=== PATIENT | female | born 1975 | race Caucasian/White ===

== ENCOUNTER 2016-03-22 15:28 | Emergency (ER) | payer OTHER ==
[~2016-03-22] VITALS: Ht 177.8 cm; Wt 111.0 kg
[~2016-03-22 15:28] MED LIST: ACID CONTROL150 MG PO; BACTRIM,SEPT1 TABLET PO; CIPRO500 MG PO; CLARITIN10 M4 PO; CLONAZEPAM0.5 MG PO; COUMADIN2.5 MG PO; COUMADIN5 MG PO; CYCLOBENZAPRINE10 MG PO; CYCLOBENZAPRINE5 MG PO; CYMBALTA60 MG PO; DEPO-PROVER150 MG/ML IM; DOXYCYCLINE HY100 MG PO; DULOXETINE HCL60 MG PO; FLEXERIL5 MG PO; GABAPENTIN300 MG PO; KLONOPIN0.5 M1 PO; LEVOTHYROXINE100 MCG PO; LEVOTHYROXINE175 MCG PO; LOVENOX100 MG/1 M SC; MORPHINE SULFAT15 M1 PO; NEURONTIN300 MG PO; OXYCODONE-APAP1 EAC6 PO; PERCOCET 5/31 TABLET PO; PERCOCET 7.51 TABLET PO; RANITIDINE HCL150 MG PO; REGLAN10 MG PO; SALINE NASAL SP45 ML BOTH NARES; SYNTHROID200 MCG PO; TOPAMAX50 MG PO; TOPIRAMATE50 MG PO; TRAZODONE HCL50 MG PO; TYLENOL EXTRA500 MG PO; VALIUM5 MG PO; WARFARIN SODIUM5 MG PO; WELLBUTRIN SR200 MG PO; ZOFRAN ODT4 MG PO; ZOLOFT100 MG PO
[2016-03-22 17:05] LABS: HEMATOCRIT 42.7 % (36.0-46.0); MCH 29.6 PG (29.0-34.0); MCHC 32.6 G/DL (30.0-36.0); MCV 90.9 FL (83-99); MEAN PLAT.VOLUME 9.8 uM^3 (9.5-12.4); PLATELET COUNT 288 K/uL (156-360); RBC DIS.WIDTH-CV 13.9 % (11.8-14.6); RBC DIS.WIDTH-SD 45.2 % (39-53); WHITE BLOOD COUNT 10.6 K/uL (4.1-10.2)
[2016-03-22 17:16] LABS: CHLORIDE 108 mEq/L (99-109); POTASSIUM 4.1 mEq/L (3.7-5.4); SODIUM 140 mEq/L (136-147)
[2016-03-22 17:18] LABS: GLUCOSE 90 mg/dL (70-99)
[2016-03-22 17:19] LABS: ANION GAP 6 MEQ/L (2-14)
[2016-03-22 17:21] LABS: GFR ESTIMATE (CALCULATED) > 59 mL/min/
[2016-03-22 17:23] LABS: UREA NITROGEN (BUN) 6 mg/dL (9-23)
[2016-03-22 18:01] LABS: PROTHROMBIN TIME 51.1 (9.2-11.2)
[2016-03-22 18:09] LABS: INTER. NORMALIZED RATIO 4.8
[2016-03-22] MEDS ORDERED: COUMADIN2.5 MG PO (18:20)
[2016-03-22 18:59] VITALS: BP 122/85
== END 2016-03-22 19:00 | disposition home or self-care (01) ==
LOC: EME 15:28
DX: H11.32 Conjunctival hemorrhage, left eye (principal); R79.1 Abnormal coagulation profile; Z79.01 Long term (current) use of anticoagulants; Z86.718 Personal history of other venous thrombosis and embolism; Z86.711 Personal history of pulmonary embolism
CPT/HCPCS: 80048; 85027; 85610; 86850; 86900; 86901; 99281; 99284

== ENCOUNTER → 2016-08-16 | Outpatient (CLI) | payer OTHER ==
[2016-08-16 17:20] LABS: RED CELL AREA COUNTED 18; RED CELL COUNT 2 /MM^3 (0-1); RED CELL DILUTION 1; WBC AREA COUNTED 18; WBC DILUTION 1; WHITE CELL COUNT 1 /MM^3 (0-5); WHITE CELL RAW COUNT 1
[2016-08-16 18:11] LABS: CSF EOSINOPHILS 0 % (0-25); MONO RAW COUNT 5; MONONUCLEAR WBC'S 100 % (50-90); POLYNUCLEAR WBC'S 0 % (0-3)
[2016-08-16 18:16] LABS: APPEARANCE CLEAR
[2016-08-17 18:48] LABS: Lyme Disease DNA Not detected (Not Detected); Lyme Source CSF (())
[2016-08-17 21:18] LABS: Albumin, Serum 3.7 g/dL (3.5-4.9); IgG Index, CSF 0.41 index (<0.66); Synthesis Rate IgG, CSF -5.1 mg/24 h (-9.9-3.3)
== END | disposition home or self-care (01) ==
LOC: RAD 14:49
PROVIDERS: Psychiatry & Neurology Neurology
PROC: 009U3ZZ Drainage of Spinal Canal, Percutaneous Approach (ICD-10-PCS; principal; 2016-08-16)
DX: R27.0 Ataxia, unspecified (principal)
CPT/HCPCS: 62270; 77003; 82040 90; 82042 90; 82164 90; 82784 90; 82945; 83873 90; 83916 90; 84157; 86592 90; 87070; 87205; 88108; 89051

== ENCOUNTER 2016-11-18 14:36 | Emergency (ER) | payer OTHER ==
[~2016-11-18] VITALS: Ht 175.3 cm; Wt 113.8 kg
[2016-11-18 15:10] LABS: HEMATOCRIT 46.7 % (36.0-46.0); MCH 29.4 PG (29.0-34.0); MCHC 32.3 G/DL (30.0-36.0); MEAN PLAT.VOLUME 9.6 uM^3 (9.5-12.4); PLATELET COUNT 372 K/uL (156-360); RBC DIS.WIDTH-CV 14.2 % (11.8-14.6); RBC DIS.WIDTH-SD 47.9 % (39-53); RED BLOOD COUNT 5.13 M/uL (3.80-5.20); WHITE BLOOD COUNT 20.3 K/uL (4.1-10.2)
[2016-11-18 15:18] LABS: CHLORIDE 108 mEq/L (99-109); POTASSIUM 3.6 mEq/L (3.7-5.4); SODIUM 139 mEq/L (136-147)
[2016-11-18 15:20] LABS: GLUCOSE 82 mg/dL (70-99)
[2016-11-18 15:21] LABS: ANION GAP 9 MEQ/L (2-14)
[2016-11-18 15:22] LABS: TOTAL BILIRUBIN 0.3 mg/dL (0.0-1.0)
[2016-11-18 15:24] LABS: ALKALINE PHOSPHATASE 124 IU/L (3-129); GFR ESTIMATE (CALCULATED) > 59 mL/min/
[2016-11-18 15:25] LABS: UREA NITROGEN (BUN) 6 mg/dL (9-23)
[2016-11-18 15:32] LABS: QUANTITATIVE HCG < 4.0 MIU/ML
[2016-11-18 15:34] LABS: ADD MIUA? YES; BILIRUBIN NEGATIVE; BLOOD LARGE; COLOR YELLOW ((YELLOW)); GLUCOSE (STRIP) NEGATIVE; KETONES NEGATIVE; LEUKOCYTES NEGATIVE; NITRITE NEGATIVE; PROTEIN (STRIP) 30; SPECIFIC GRAVITY 1.015 (1.000-1.030)
[2016-11-18 16:15] LABS: BACTERIA 1+ /HPF; EPITHELIAL CELLS 3+ /HPF; RED BLOOD CELLS 30-40 /HPF (0-5); UCUL ADDED? NO; WHITE BLOOD CELLS RARE /HPF (0-5)
[2016-11-18 16:16] LABS: CASTS NONE SEEN /LPF; CRYSTALS NONE SEEN; MUCUS 1+ /LPF
[2016-11-18 17:18] LABS: INTER. NORMALIZED RATIO 3.8; PROTHROMBIN TIME 44.6 SEC (10.2-12.9)
[2016-11-18 17:22] LABS: MAGNESIUM 2.1 mg/dL (1.3-2.7)
[2016-11-18] MEDS ORDERED: MACROBID100 MG PO (19:23)
[2016-11-18 19:36] VITALS: BP 121/95
== END 2016-11-18 19:42 | disposition home or self-care (01) ==
LOC: EME 14:36
PROVIDERS: Physician Assistant Medical
DX: N30.00 Acute cystitis without hematuria (principal); R11.2 Nausea with vomiting, unspecified; R19.7 Diarrhea, unspecified; R23.3 Spontaneous ecchymoses; R42 Dizziness and giddiness; R53.1 Weakness; K76.0 Fatty (change of) liver, not elsewhere classified; Z86.711 Personal history of pulmonary embolism; Z86.718 Personal history of other venous thrombosis and embolism; Z79.01 Long term (current) use of anticoagulants; F17.200 Nicotine dependence, unspecified, uncomplicated
CPT/HCPCS: 74177; 80053; 81003; 83735; 84702; 85027; 85610; 99281; 99284; J2270; J2405; J7030

== ENCOUNTER 2017-02-22 15:53 | Emergency (ER) | payer OTHER ==
[~2017-02-22] VITALS: Ht 177.8 cm; Wt 111.8 kg
[~2017-02-22 15:53] MED LIST changes: +MACROBID100 MG PO
[2017-02-22 17:00] LABS: HEMATOCRIT 45.4 % (36.0-46.0); MCH 29.9 PG (29.0-34.0); MCV 90.4 FL (83-99); PLATELET COUNT 358 K/uL (156-360); RBC DIS.WIDTH-CV 13.1 % (11.8-14.6); RBC DIS.WIDTH-SD 43.8 % (39-53); RED BLOOD COUNT 5.02 M/uL (3.80-5.20); WHITE BLOOD COUNT 16.2 K/uL (4.1-10.2)
[2017-02-22 17:16] LABS: CHLORIDE 109 mEq/L (99-109); SODIUM 137 mEq/L (136-147)
[2017-02-22 17:18] LABS: GLUCOSE 98 mg/dL (70-99); TOTAL PROTEIN 7.3 g/dL (6.4-8.3)
[2017-02-22 17:20] LABS: TOTAL BILIRUBIN 0.2 mg/dL (0.0-1.0)
[2017-02-22 17:22] LABS: ALKALINE PHOSPHATASE 105 IU/L (3-129); CREATININE 0.8 mg/dL (0.6-1.3); GFR ESTIMATE (CALCULATED) > 59 mL/min/
[2017-02-22 17:23] LABS: UREA NITROGEN (BUN) 8 mg/dL (9-23)
[2017-02-22 17:24] LABS: AST (GOT) 13 IU/L (2-34)
[2017-02-22 17:25] LABS: ALT (GPT) 8 IU/L (3-49)
[2017-02-22 17:33] LABS: QUANTITATIVE HCG < 4.0 MIU/ML
[2017-02-22 18:23] LABS: APPEARANCE SL.HAZY ((CLEAR)); BILIRUBIN NEGATIVE; BLOOD NEGATIVE; COLOR YELLOW ((YELLOW)); GLUCOSE (STRIP) NEGATIVE; KETONES NEGATIVE; LEUKOCYTES NEGATIVE; NITRITE NEGATIVE; PROTEIN (STRIP) NEGATIVE; SPECIFIC GRAVITY 1.015 (1.000-1.030); UROBILINOGEN 0.2 MG/DL (0.2-1.0)
[2017-02-22 18:34] LABS: BACTERIA NONE SEEN /HPF; EPITHELIAL CELLS 1+ /HPF; MUCUS TRACE /LPF; RED BLOOD CELLS 0-5 /HPF (0-5); UCUL ADDED? NO; WHITE BLOOD CELLS 0-5 /HPF (0-5)
[2017-02-22] MEDS ORDERED: BENTYL10 MG PO (22:09)
[2017-02-22] MEDS ORDERED: PEPCID20 MG PO (22:09)
[2017-02-22] MEDS ORDERED: ZOFRAN ODT4 MG PO (22:15)
[2017-02-22 22:31] VITALS: BP 90/71
== END 2017-02-22 22:33 | disposition home or self-care (01) ==
LOC: RME 15:53 → EME 15:53 → RME 22:33
DX: R10.84 Generalized abdominal pain (principal); I10 Essential (primary) hypertension; K21.9 Gastro-esophageal reflux disease without esophagitis; F17.200 Nicotine dependence, unspecified, uncomplicated; Z86.711 Personal history of pulmonary embolism; Z86.718 Personal history of other venous thrombosis and embolism; Z79.01 Long term (current) use of anticoagulants; F32.9 Major depressive disorder, single episode, unspecified; F41.9 Anxiety disorder, unspecified; Z88.6 Allergy status to analgesic agent
CPT/HCPCS: 74177; 80053; 81003; 84702; 85027; 99281; 99284; J2270; J7030

== ENCOUNTER 2017-04-02 21:00 | Emergency (ER) | payer OTHER ==
[~2017-04-02] VITALS: Ht 175.3 cm; Wt 108.7 kg
[~2017-04-02 21:00] MED LIST changes: +BENTYL10 MG PO; +PEPCID20 MG PO
[2017-04-02 21:13] VITALS: BP 120/95
[2017-04-02 22:44] LABS: HEMATOCRIT 40.3 % (36.0-46.0); HEMOGLOBIN 13.5 G/DL (11.9-15.5); MCHC 33.5 G/DL (30.0-36.0); MCV 89.6 FL (83-99); PLATELET COUNT 359 K/uL (156-360); RBC DIS.WIDTH-CV 13.3 % (11.8-14.6); RBC DIS.WIDTH-SD 43.8 % (39-53); WHITE BLOOD COUNT 18.8 K/uL (4.1-10.2)
[2017-04-02 23:01] LABS: INTER. NORMALIZED RATIO 2.5
[2017-04-02 23:05] LABS: CHLORIDE 108 MEQ/L (99-109); POTASSIUM 3.9 MEQ/L (3.7-5.4); SODIUM 136 MEQ/L (136-147)
[2017-04-02 23:10] LABS: CREATININE 0.7 MG/DL (0.6-1.3); GFR ESTIMATE (CALCULATED) > 59 mL/min/; GLUCOSE 99 mg/dL (70-99); UREA NITROGEN (BUN) 15 mg/dL (9-23)
== END 2017-04-02 23:47 | disposition left against medical advice (07) ==
LOC: EME 21:00
DX: K08.9 Disorder of teeth and supporting structures, unspecified (principal); Z53.21 Procedure and treatment not carried out due to patient leaving prior to being seen by health care provider
CPT/HCPCS: 80048; 85027; 85610